=== PATIENT | female | born 1935 | race Caucasian/White ===

== ENCOUNTER → 2023-09-23 | Outpatient (CLI) | payer MEDICARE | LOC: MHCPAIN 13:09 | DX: M48.062 Spinal stenosis, lumbar region with neurogenic claudication (principal); M47.816 Spondylosis without myelopathy or radiculopathy, lumbar region; M47.814 Spondylosis without myelopathy or radiculopathy, thoracic region | CPT/HCPCS: G0463 ==

== ENCOUNTER → 2023-10-03 | Outpatient (CLI) | payer MEDICARE | LOC: MHCPAIN 04:30 | DX: M54.16 Radiculopathy, lumbar region (principal) ==

== ENCOUNTER → 2023-12-04 | Outpatient (CLI) | payer MEDICARE ==
[~2023-12-04] MED LIST: ASPIRIN E.C. 8181 MG PO; CORDARONE200 MG/TAB PO; DESYREL 50MG50 MG PO; EFFEXOR-XR150 MG PO; GLUCOPHAGE XR500 M1 PO; HCTZ 25MG TAB25 MG PO; Iohexol 300 - 10 ML VIAL ONE; LAMICTAL XR25 MG PO; LASIX 20MG TABL20 MG PO; LINZESS290CAP PO; LIPITOR 40MG TA40 MG PO; LOPRESSOR 550 MG/TAB PO; LYCOPENE10 M2 PO; LYRICA 150MG C150 MG PO; Lidocaine PF 2% (20 MG/ML) 2 ML VIAL ONE; MULTIPLE VITAMI1 CAP PO; NATURAL IRON65 MG PO; NATURAL MAGNES200 MG PO; NORCO 325 MG-51 TAB PO; NORVASC 5MG5 MG/TAB PO; PRIL40 PO; VITAMIN B225 MG PO; VITAMIN D31000 I1 PO; VITAMINC500CH PO; ZANAFLEX2 MG PO; ZYLOPRIM 100MG100 MG PO; [UNRECOGNIZED DRUG - OTHER] TP
== END ==
LOC: MHCPAIN 13:51
DX: M47.896 Other spondylosis, lumbar region (principal); M48.061 Spinal stenosis, lumbar region without neurogenic claudication; M54.16 Radiculopathy, lumbar region; M79.2 Neuralgia and neuritis, unspecified; I10 Essential (primary) hypertension; E11.9 Type 2 diabetes mellitus without complications; Z79.4 Long term (current) use of insulin
CPT/HCPCS: G0463; J1100; Q9967

== ENCOUNTER → 2023-12-05 | Outpatient (CLI) | payer MEDICARE ==
[~2023-12-05] MED LIST changes: -Iohexol 300 - 10 ML VIAL ONE; -Lidocaine PF 2% (20 MG/ML) 2 ML VIAL ONE
== END ==
LOC: MHCPAIN 13:00
DX: M54.17 Radiculopathy, lumbosacral region (principal); M54.16 Radiculopathy, lumbar region

== ENCOUNTER 2023-12-06 07:28 | Day surgery (SDC) | payer MEDICARE ==
[~2023-12-06] VITALS: Ht 162.6 cm; Wt 91.0 kg
[~2023-12-06 07:28] MED LIST changes: +LR 1,000 ML IV SCH
--- NOTE | 2023-12-06 07:42 | NUR ---
PATIENT ADMITTED TO ROOM 6 PER WHEELCHAIR ACCOMPANIED BY SON AND TRANSFERS TO CART WITH ONE PERSON ASSIST. PATIENT NON-ENGISH SPEAKINIG AND VOYCE USED TO TRANSLATE. IVF STARTED. ACCUCHECK 115. READIED FOR SURGERY.
[2023-12-06 08:57] VITALS: BP 174/69; PULSE 69; TEMP 97.8
[2023-12-06] MEDS ORDERED: Ondansetron 4 MG/2 ML VIAL ONE (09:02)
[2023-12-06] MEDS ORDERED: Lidocaine PF 2% (20 MG/ML) 5 ML VIAL ONE (09:02)
[2023-12-06] MEDS ORDERED: Morphine 4 MG/ML VIAL IV PRN (09:45)
[2023-12-06] MEDS ORDERED: Ondansetron 4 MG/2 ML VIAL IV PRN ×2 (09:45→10:00)
[2023-12-06] MEDS ORDERED: Acetaminophen 325 MG TAB PO PRN (09:45)
[2023-12-06] MEDS ORDERED: hydrALAZINE 20 MG/ML 1 ML VIAL IV PRN (10:00)
[2023-12-06] MEDS ORDERED: fentaNYL 50 MCG/ML 1 ML SYRINGE/VIAL [PACU/SDC ONLY] IV PRN (10:00)
[2023-12-06 10:15] VITALS: BP 136/61; PULSE 65; TEMP 97.7
[2023-12-06 10:30] VITALS: BP 134/96; PULSE 74
--- NOTE | 2023-12-06 12:22 | NUR ---
1015- PT RETURNS FROM PACU VIA CART TO [facility]. MONITORS ON AND ALARMS SET. CALL LIGHT WITHIN REACH. REPORT RECEIVED CESAR ANDINO RN. PT ALERT AND ORIENTED. PT REQUESTS FOOD AND DRINK. PT DENIES ANY PAIN OR NAUSEA. 1030- PT TAKING FOOD AND DRINK WELL. NO COMPLICATIONS NOTED. 1115- dISCHARGE INSTRUCTIONS GIVEN TO PT. ALL QUESTIONS ANSWERED. 1120- PT TRANSFERRED OUT OF HOSPITAL VIA PERSONAL WHEELCHAIR TO PERSONAL VEHICLE DRIVEN BY SON.
== END 2023-12-06 11:20 | disposition home or self-care (01) ==
LOC: SDCO 07:28
DX: K64.2 Third degree hemorrhoids (principal); K62.5 Hemorrhage of anus and rectum; Z79.82 Long term (current) use of aspirin
CPT/HCPCS: J1920; J2405; J2704; J7120